=== PATIENT | female | born 1960 | race Caucasian/White ===

== ENCOUNTER 2017-07-20 21:01 | Inpatient (IN) | payer BC ==
[~2017-07-20] VITALS: Ht 165.1 cm; Wt 81.8 kg
[2017-07-20 22:46] LABS: BASOPHILS 0.7 % (0-2); EOSINOPHILS 1.9 % (0-7); HEMOGLOBIN 14.8 g/dL (12-16); LYMPHOCYTES 29.9 % (15-50); MCH 29.8 pg (26.0-34.0); MCHC 32.9 g/dL (31.0-37.0); MCV 90.7 fL (80.0-100.0); MEAN PLATELET VOLUME 11.1 fL (7.4-10.4); MONOCYTES 5.5 % (2-11); RBC 4.96 10x6/uL (4.00-5.40); RDW 13.1 % (11.5-14.5); WBC 6.9 10x3/uL (4.8-10.8)
[2017-07-20 22:48] LABS: PLATELET COUNT 296 10x3/uL (130-400)
[2017-07-20 22:51] LABS: APPEARANCE CLEAR (CLEAR); COLOR YELLOW (YELLOW); NITRITE NEGATIVE (NEGATIVE); PROTEIN NEGATIVE (NEGATIVE)
[2017-07-20 22:52] LABS: BACTERIA MODERATE /hpf (NONE SEEN); BILIRUBIN NEGATIVE (NEGATIVE); EPITHELIAL CELLS 0-5 /hpf (0-5); GLUCOSE 1000 mg/dL (NEGATIVE); KETONE NEGATIVE (NEGATIVE); RED CELLS - URINE 0-5 /hpf (0-5); UROBILINOGEN NORMAL (NORMAL); WHITE CELLS - URINE OCC /hpf (0-5)
[2017-07-20 22:59] LABS: ALBUMIN 3.4 g/dL (3.4-5.0); BILIRUBIN - TOTAL 0.6 mg/dL (0.2-1.3); CALCIUM 9.4 mg/dL (8.5-10.1); CARBON DIOXIDE 27.5 mmol/L (21.0-32.0); CREATININE - SERUM 1.2 mg/dL (0.6-1.3); PROTEIN - SERUM 7.8 g/dL (6.4-8.2)
[2017-07-20 23:07] LABS: ANION GAP 14.3 mmol/L (8-16); POTASSIUM - SERUM 2.8 mmol/L (3.5-5.1)
[2017-07-21] MEDS ORDERED: CATAPRES0.2 MG PO (03:25)
--- NOTE | 2017-07-21 03:58 | NUR ---
RECEIVED TO FLOOR, ORIENTED TO ROOM, CALL LIGHT IN REACH, DENIES NEEDS, WILL CONTINUE TO MONITOR
[2017-07-21 04:24] VITALS: BP 141/87
[2017-07-21 04:34] VITALS: BP 141/87
[2017-07-21 06:43] LABS: CARBON DIOXIDE 26.7 mmol/L (21.0-32.0); CHLORIDE - SERUM 97 mmol/L (98-107); HEMOGLOBIN A1C 15.4 % (4.8-6.0); SODIUM 136 mmol/L (136-145); UREA NITROGEN 14 mg/dL (7-18)
[2017-07-21 07:02] LABS: BASOPHILS 0.9 % (0-2); EOSINOPHILS 2.3 % (0-7); HEMATOCRIT 38.4 % (36.0-48.0); HEMOGLOBIN 13.3 g/dL (12-16); IMMATURE GRANULOCYTES 0.7 % (0-5); LYMPHOCYTES 37.5 % (15-50); MCH 29.8 pg (26.0-34.0); MCHC 34.6 g/dL (31.0-37.0); MEAN PLATELET VOLUME 10.6 fL (7.4-10.4); MONOCYTES 8.6 % (2-11); PLATELET COUNT 243 10x3/uL (130-400); RBC 4.47 10x6/uL (4.00-5.40); RDW 12.7 % (11.5-14.5); WBC 6.9 10x3/uL (4.8-10.8)
[2017-07-21 07:04] LABS: MCV 85.9 fL (80.0-100.0)
[2017-07-21 07:14] LABS: CALC OSMOLALITY 291 mosm/kg (275-300); CREATININE - SERUM 0.8 mg/dL (0.6-1.3); GLUCOSE 434 mg/dL (74-106); POTASSIUM - SERUM 3.3 mmol/L (3.5-5.1); eGFR NON AFRICAN AMERICAN 79 mL/min (90-120)
--- NOTE | 2017-07-21 08:00 | NUR ---
PATIENT IS ALERT/ORIENT X4. USING CALL LIGHT FOR NEEDS. RIGHT FORARM PERIPHERAL LINE RUNNING NS WITH 40MEGK. DR CAVAZOS NURSE CALLED INREGARDS OF PATIENTS MEDICATIONS. GLUCOSE LEVEL Q FOUR HOURS. 352 AT 0800. SLIDING SCALE INSULIN GIVEN
[2017-07-21] MEDS ORDERED: TRIAMTERENE-HCT1 TA1 PO (08:08)
[2017-07-21 08:20] VITALS: BP 137/70
[2017-07-21 10:28] VITALS: Ht 165.1 cm; Wt 81.8 kg
--- NOTE | 2017-07-21 10:49 | NUR ---
PT SEEN EARILER THIS AM IN REGARDS TO HOME MEDICATION LIST AND WANTING TO TAKE OWN MEDS. PT WAITED WHILE THIS NURSE CALLED POC AND OFFICE-WAITED WHILE MEDS WERE DISPENSED PER OUR PHARMACY. PT HAD NO FURTHER CONCERNS. CALL LIGHT IN REACH
--- NOTE | 2017-07-21 11:00 | NUR ---
URINE COLLECTED AND TAKEN TO LAB FOR UA / CULTURE
--- NOTE | 2017-07-21 12:00 | NUR ---
GLUCOSE LEVEL 318. SLIDING SCALE INSULIN GIVEN
[2017-07-21 12:17] VITALS: BP 128/53
--- NOTE | 2017-07-21 13:05 | NUR ---
NUTRITION F/U RECEIVED CONSULT FOR DM DIET EDU. PROVIDED PT WITH DM DIET LITERATURE. DISCUSSED SOURCES OF CARB, SERVING SIZES, LABEL READING, CONSISTENT MEAL TIMES. ENCOURAGED PT TO CHECK BS REGULARLY AND RECORD. RD NAME AND # PROVIDED. RD FOLLOWING
--- NOTE | 2017-07-21 15:44 | NUR ---
Patient Name: IZABELA MCCOY Admission Status: ER Accout number: [id number] Admission Date: 07-21-2017 : 1960 Admission Diagnosis: Attending: AMBER BELTRAN Current LOS: 1 Anticipated DC Date: 07-24-2017 Planned Disposition: Home Primary Insurance: [email or web address] [place] PPO Discharge Planning Comments: CM MET WITH PATIENT REGARDING D/C NEEDS AND PLANS. PATIENT LIVES WITH HER SPOUSE AND SOMEONE IN THE FAMILY WILL DRIVE HER HOME AT DISCHARGE. PATIENT STATED THERE ARE 2 STEPS W/RAILS TO ENTER HOME AND NO STAIRS INSIDE. PATIENT STATED SHE IS INDEPENDENT WITH HER CARE AND HAS A ROLATOR WALKER, CANE, AND SHOWER CHAIR AT HOME. PATIENT STATED SHE WILL NEED TO GET A GLUCOMETER IF SHE IS DX WITH DIABETES. PATIENTS PCP IS DR. BELTRAN AND USES [facility] ON [facility]. PATIENT IS REFUSING HOME HEALTH AT THIS TIME. CM WILL CONTINUE TO FOLLOW PATIENT WITH D/C NEEDS AND PLANS. PCP DR. DVEIN MARIA ON [facility]- [phone] ILA ([facility] [place]) [phone] Hotel Controller: Debracristina Cabrera Is the patient Alert and Oriented? Yes 0 * How many steps to enter\exit or inside your home? 2 W/RAILS 0 * PCP DR. BELTRAN 0 * Pharmacy [facility] [address] 0 * Preadmission Environment Home with Family 0 * ADLs Independent 0 * Equipment Cane Shower Chair Walker 0 * List name and contact numbers for known caregivers / representatives who currently or will assist patient after discharge: IL[facility] ([facility] [place]) [phone] * Community resources currently utilized None 0 * Additional services required to return to the preadmission environment? Yes 0 * Can the patient safely return to the preadmission environment? Yes 0 * Has this patient been hospitalized within the prior 30 days at any hospital? No 0 Grand Total: 0
[2017-07-21 17:02] VITALS: BP 132/78
[2017-07-21 21:03] VITALS: BP 123/78
[2017-07-22 00:37] VITALS: BP 139/87
[2017-07-22 05:00] VITALS: BP 132/87
--- NOTE | 2017-07-22 08:06 | NUR ---
AWAKE AND ALERT. ORIENTED X3. NO C/O AT THIS TIME. LUNGS CLEAR BILATERALLY, NO COUGH NOTED. SKIN IS INTACT WITHOUT REDNESS. IV TO RIGHT FOREARM IS PATENT WITHOUT REDNESS AT INSERTION SITE. DENIES NEEDS.
--- NOTE | 2017-07-22 08:15 | NUR ---
WAS ABLE TO CHECK SUGAR ON HER OWN WITH SBA. GAVE SELF 2 UNITS REGULAR SUBQ WITHOUT DIFFICULTY.
[2017-07-22 08:22] VITALS: BP 135/83
[2017-07-22 09:43] LABS: BASOPHILS 0.9 % (0-2); EOSINOPHILS 3.8 % (0-7); HEMOGLOBIN 14.2 g/dL (12-16); IMMATURE GRANULOCYTES 1.2 % (0-5); LYMPHOCYTES 39.9 % (15-50); MCH 29.8 pg (26.0-34.0); MCHC 33.8 g/dL (31.0-37.0); MEAN PLATELET VOLUME 10.5 fL (7.4-10.4); NEUTROPHILS 47.2 % (40-80); PLATELET COUNT 235 10x3/uL (130-400); RBC 4.77 10x6/uL (4.00-5.40); WBC 5.9 10x3/uL (4.8-10.8)
[2017-07-22 09:47] LABS: MCV 88.1 fL (80.0-100.0)
[2017-07-22 10:09] LABS: ALKALINE PHOSPHATASE 117 U/L (46-116); ALT (SGPT) 138 U/L (10-68); BILIRUBIN - TOTAL 0.59 mg/dL (0.2-1.3); CALCIUM 8.7 mg/dL (8.5-10.1); CARBON DIOXIDE 26.2 mmol/L (21.0-32.0); CHLORIDE - SERUM 104 mmol/L (98-107); CREATININE - SERUM 0.7 mg/dL (0.6-1.3); POTASSIUM - SERUM 3.5 mmol/L (3.5-5.1); PROTEIN - SERUM 6.9 g/dL (6.4-8.2); SODIUM 138 mmol/L (136-145); eGFR NON AFRICAN AMERICAN > 90 mL/min (90-120)
[2017-07-22 10:11] LABS: CALC OSMOLALITY 284 mosm/kg (275-300); GLUCOSE 282 mg/dL (74-106); UREA NITROGEN 10 mg/dL (7-18)
[2017-07-22 11:53] VITALS: BP 106/60
--- NOTE | 2017-07-22 12:00 | NUR ---
FSBS 290. GIVEN 6 UNITS REGULAR SUBQ PER SS. WAS ABLE TO DO PER SELF WITH SBA.
[2017-07-22 16:19] VITALS: BP 146/80
[2017-07-22 20:00] VITALS: BP 113/68
[2017-07-23] VITALS: BP 147/88
[2017-07-23 04:00] VITALS: BP 128/81
[2017-07-23 06:55] LABS: ALBUMIN 3.1 g/dL (3.4-5.0); ALKALINE PHOSPHATASE 117 U/L (46-116); ALT (SGPT) 140 U/L (10-68); BILIRUBIN - TOTAL 0.52 mg/dL (0.2-1.3); CALC OSMOLALITY 280 mosm/kg (275-300); CALCIUM 9.1 mg/dL (8.5-10.1); CARBON DIOXIDE 27.7 mmol/L (21.0-32.0); CHLORIDE - SERUM 103 mmol/L (98-107); CREATININE - SERUM 0.6 mg/dL (0.6-1.3); POTASSIUM - SERUM 3.1 mmol/L (3.5-5.1); SODIUM 138 mmol/L (136-145); UREA NITROGEN 11 mg/dL (7-18); eGFR NON AFRICAN AMERICAN > 90 mL/min (90-120)
[2017-07-23 07:09] LABS: GLUCOSE 199 mg/dL (74-106)
[2017-07-23 08:18] VITALS: BP 134/80
[2017-07-23] MEDS ORDERED: MACROBID100 MG PO (09:31)
[2017-07-23] MEDS ORDERED: LIPITOR20 MG PO (09:31)
[2017-07-23] MEDS ORDERED: K-DUR20 MEQ PO (09:32)
[2017-07-23] MEDS ORDERED: LANTUS INSULIN10 ML SC (09:33)
[2017-07-23] MEDS ORDERED: HUMULIN R100 U/ML SC (09:34)
[2017-07-23] MEDS ORDERED: ZYLOPRIM100 MG PO (09:34)
--- NOTE | 2017-07-23 10:42 | NUR ---
CALLED 'S OFFICE, NOTIFIED ROSALIO JEAN APN OF PATIENT'S POTASSIUM LEVEL 3.1 THIS MORNING. SHE STATED "THAT IS OKAY, I ORDERED HER TO START TAKING POTASSIUM AT HOME."
--- NOTE | 2017-07-23 11:00 | NUR ---
D/C IV WITH CATHETER INTACT. DISCHARGE INSTRUCTIONS COMPLETED WITH PATIENT. SHE DENIES QUESTIONS.
--- NOTE | 2017-07-23 11:45 | NUR ---
PT LEFT VIA WHEELCHAIR
--- NOTE | 2017-07-23 13:49 | NUR ---
JOCELYNN LATE ENTRY REASSESSMENT NOTE: PATIENT IS DISCHARGING HOME TODAY/ PATIENT STATED SHE HAS FAMILY THAT ARE DIABETICS AND DOES NOT WANT HOME HEALTH. CM STATED IF SHE DECIDED SHE DID TO LET HER PCP KNOW AND THEY COULD SET IT UP. CM STATED [facility] OR [facility] IS THE MOST RESONABLY PRICED FOR HER GLUCOMETER AND NEEDLES.
--- NOTE | 2017-07-23 14:23 | NUR ---
CALLED MEDICATION IN TO [facility] SPOKE WITH AMANDA, PHARMACIST.
== END 2017-07-23 11:50 | disposition home or self-care (01) | DRG 629 ==
LOC: D.ER 21:01 → D.MS 07-21 02:05
PROVIDERS: Emergency Medicine; Nurse Practitioner Family; ADMIT Legal Medicine
PROC: 04QY0ZZ Repair Lower Artery, Open Approach (ICD-10-PCS; principal; 2017-07-21)
DX: E11.65 Type 2 diabetes mellitus with hyperglycemia (principal); N39.0 Urinary tract infection, site not specified; I10 Essential (primary) hypertension; E78.5 Hyperlipidemia, unspecified; E87.6 Hypokalemia; N93.8 Other specified abnormal uterine and vaginal bleeding; S31.41XA Laceration without foreign body of vagina and vulva, initial encounter; X58.XXXA Exposure to other specified factors, initial encounter